=== PATIENT | male | born 1950 | race Caucasian/White ===

== ENCOUNTER → 2020-01-06 11:58 | Outpatient (BNVA) | payer MEDICARE, SELFPAY | PROVIDERS: Family Provider Nurse Practitioner Family; PCP Nurse Practitioner Family; Visit Provider Registered Nurse | DX: I10 Essential (primary) hypertension (principal) | CPT/HCPCS: 80053; 80061; 85025 ==

== ENCOUNTER → 2021-02-12 11:10 | Outpatient (BNVA) | payer MEDICARE, SELFPAY | PROVIDERS: Family Provider Nurse Practitioner Family; PCP Nurse Practitioner Family; Visit Provider Registered Nurse | DX: I10 Essential (primary) hypertension (principal); E78.5 Hyperlipidemia, unspecified | CPT/HCPCS: 80053; 80061; 85025 ==

== ENCOUNTER → 2021-02-13 08:48 | Outpatient (BNVA) | payer MEDICARE, SELFPAY | PROVIDERS: Family Provider Nurse Practitioner Family; PCP Nurse Practitioner Family; Visit Provider Registered Nurse | DX: I10 Essential (primary) hypertension (principal); E78.5 Hyperlipidemia, unspecified; R73.9 Hyperglycemia, unspecified; E66.01 Morbid (severe) obesity due to excess calories; Z68.42 Body mass index [BMI] 45.0-49.9, adult; Z71.3 Dietary counseling and surveillance; R06.02 Shortness of breath | CPT/HCPCS: 83036 ==

== ENCOUNTER → 2022-01-16 12:40 | Outpatient (BNVA) | payer MEDICARE, SELFPAY | PROVIDERS: PCP Registered Nurse; Referring Provider Nurse Practitioner Family; Visit Provider Specialist | DX: G56.02 Carpal tunnel syndrome, left upper limb (principal) | CPT/HCPCS: 95908 ==

== ENCOUNTER 2022-03-19 07:47 | Outpatient (CLI) | payer MEDICARE, SELFPAY ==
--- NOTE | 2022-03-19 | XR_ITS ---
WS: [id number] Exam: XR chest 2V* [id number] Date/Time of Exam: 03/19/2022 12:00 AM Reason For Exam: PRE SURGERY, HYPERTENSION Comparison 05/14/2010. The lungs are clear and fully inflated. Normal cardiomediastinal silhouette. No pleural effusions. [place] structures are intact. XR/XR chest 2V* 20017 IMPRESSION: 1. No acute cardiopulmonary process.
== END 2022-03-19 07:48 | disposition home or self-care (01) ==
LOC: RADOUTREAD 03-20 07:49
PROVIDERS: PCP Registered Nurse; Visit Provider Orthopaedic Surgery
DX: Z01.818 Encounter for other preprocedural examination (principal); I10 Essential (primary) hypertension
CPT/HCPCS: 71046

== ENCOUNTER 2023-04-17 11:52 | Outpatient (CLI) | payer MEDICARE, SELFPAY ==
--- NOTE | 2023-04-17 12:54 | USCV_ITS ---
EdgarAltaf boles Age: 72 Gender: M : 1950 Exam Date: 04/17/2023 12:55 Ordering Phys: Oly Rosas VP PACKAGING VP PACKAGING Technologist: Exam Location: [facility] [place] [facility] [place] Indication: pad RIGHT LEFT Brachial 149.00 mmHg Brachial 147.00 mmHg Pressure (mmHg) Waveform Pressure (mmHg) Waveform 160.00 [employer] 165.00 140.00 DPA 148.00 1.07 Ankle/Brachial Index 1.11 160.00 Pre-Exercise Toe Pressure 152.00 1.09 Pre-Exercise Toe/Brachial Index 1.02 FINDINGS Resting BOB of 1.07 on the right and 1.11 on the left Resting TBI of 1.09 on the right and 1.02 on the left CONCLUSIONS Normal resting ABIs and TBIs bilaterally No evidence of any significant arterial obstruction, based on the above findings. Dr Jese Yanes MD [facility] (Electronically Signed) Final Date: 17 April 2023 15:49 S
== END 2023-04-17 11:53 | disposition home or self-care (01) ==
LOC: RAD 11:56
PROVIDERS: PCP Registered Nurse; Visit Provider Nurse Practitioner Family
DX: R60.0 Localized edema (principal)
CPT/HCPCS: 93922

== ENCOUNTER 2023-09-07 11:30 | Outpatient (CLI) | payer MEDICARE, SELFPAY | END 2023-09-07 11:31 | disposition home or self-care (01) | LOC: SLEEP 09-08 10:50 | PROVIDERS: PCP Registered Nurse; Visit Provider Nurse Practitioner Family | DX: G47.33 Obstructive sleep apnea (adult) (pediatric) (principal); G47.36 Sleep related hypoventilation in conditions classified elsewhere; G47.10 Hypersomnia, unspecified | CPT/HCPCS: G0399 ==

== ENCOUNTER 2024-11-17 13:55 | Outpatient (CLI) | payer MEDICARE, SELFPAY ==
--- NOTE | 2024-11-17 14:01 | XR_ITS ---
WS: [id number] Abdomen series, Flat and upright 11/17/2024 Clinical Data: CONSTIPATION Comparison: None. Findings: No free air is seen beneath the diaphragms. No abnormal intra- abdominal masses or calcifications are seen. There is a large amount of fecal material throughout the colon. XR/XR abdomen min 2V 68606 Impression: Large amount of fecal material in the colon.
== END 2024-11-17 13:56 | disposition home or self-care (01) ==
LOC: RAD 13:57
PROVIDERS: PCP Nurse Practitioner Family; Visit Provider Nurse Practitioner Family
DX: K59.00 Constipation, unspecified (principal)
CPT/HCPCS: 74019

== ENCOUNTER → 2025-09-12 09:42 | Outpatient (BNVA) | payer MEDICARE, SELFPAY | PROVIDERS: PCP Nurse Practitioner Family; Visit Provider Internal Medicine | DX: R05.3 Chronic cough (principal); R06.02 Shortness of breath; J44.9 Chronic obstructive pulmonary disease, unspecified | CPT/HCPCS: 99204; Q3014 ==